=== PATIENT | female | born 1940 | race Caucasian/White ===

== ENCOUNTER 2024-01-26 19:14 | Inpatient (IN) | payer OTHER ==
[2024-01-26 19:50] LABS: VENOUS BASE EXCESS 1.6 mmol/L (-2-2); VENOUS O2 SATURATION 29.7 % (70-80); VENOUS PCO2 51.6 mmHg (38-52); VENOUS PH 7.353 (7.310-7.410)
[2024-01-26 19:53] LABS: BASO % 0.4 % (0-2.0); EOS % 0.3 % (0-4.5); HEMATOCRIT 39.8 % (32.4-45.2); LYMPH % 7.4 % (8-40); MCH 30.7 pg (25.7-33.7); MCHC 32.7 g/dl (32.0-36.0); MEAN CELL VOLUME 93.9 fl (80-96); MEAN PLT VOLUME 7.1 fl (7.5-11.1); MONO % 7.2 % (3.8-10.2); NEUT % 84.7 % (42.8-82.8); PLATELET COUNT 357 10^3/uL (134-434); RBC 4.24 M/mm3 (3.60-5.2); RDW 15.1 % (11.6-15.6); WHITE BLOOD COUNT 11.6 K/mm3 (4.0-10.0)
[2024-01-26 20:17] LABS: POTASSIUM 4.7 mmol/L (3.5-5.1)
[2024-01-26 20:19] LABS: ALBUMIN 3.8 g/dl (3.4-5.0); BLOOD UREA NITROGEN 30.2 mg/dL (7-18); CALCIUM 10.3 mg/dL (8.5-10.1)
[2024-01-26 20:22] LABS: CREATININE 1.1 mg/dL (0.55-1.3)
[2024-01-26 20:25] LABS: BILIRUBIN,TOTAL 0.4 mg/dL (0.2-1); TOT PROT 7.2 g/dl (6.4-8.2)
[2024-01-26 20:49] LABS: INR 0.95 (0.83-1.09); PROTHROMBIN TIME (PATIENT) 10.9 SEC (9.7-13.0)
[2024-01-26 20:51] LABS: ACTIVATED PTT 37.9 SECONDS (25.2-36.5)
[2024-01-26 21:23] LABS: ALBUMIN 3.8 g/dl (3.4-5.0); BLOOD UREA NITROGEN 30.4 mg/dL (7-18); CALCIUM 9.7 mg/dL (8.5-10.1)
[2024-01-26 21:27] LABS: BILIRUBIN,TOTAL 0.4 mg/dL (0.2-1); CREATININE 1.2 mg/dL (0.55-1.3)
[2024-01-26] MEDS: SODIUM CHLORIDE 0.9% 500 ML INFUS.BAG IV ONE (21:34)
[2024-01-26] MEDS ORDERED: DIVALPROEX SODIUM 125 MG TABLET E.C. ONE (23:47)
[2024-01-26] MEDS ORDERED: QUEtiapine FUMARATE 100 MG TABLET (FP) ONE (23:47)
[2024-01-26] MEDS ORDERED: LORazepam 1 MG TABLET ONE (23:47)
[2024-01-27] MEDS: QUEtiapine FUMARATE 200 MG TABLET PO ONE (00:06)
[2024-01-27] MEDS: LORazepam 1 MG TABLET PO ONE (00:06)
[2024-01-27] MEDS: DIVALPROEX SODIUM 125 MG TABLET E.C. PO ONE (00:06)
[2024-01-27 02:22] VITALS: BMI 18.8
[2024-01-27] MEDS: ENOXAPARIN NA (PORCINE) 40 MG/0.4 ML DISP.SYRIN SQ ONE (06:29)
[2024-01-27] MEDS: INSULIN ASPART SLIDING SCALE (NOVOLOG) 1 VIAL SQ SCH (06:37)
[2024-01-27] MEDS: LEVOTHYROXINE NA 50 MCG TABLET (FP) PO SCH (06:43)
[2024-01-27 08:34] LABS: HEMATOCRIT 35.1 % (32.4-45.2); HEMOGLOBIN 11.3 GM/dL (10.7-15.3); MCH 30.8 pg (25.7-33.7); MCHC 32.3 g/dl (32.0-36.0); MEAN CELL VOLUME 95.3 fl (80-96); MEAN PLT VOLUME 7.8 fl (7.5-11.1); PLATELET COUNT 315 10^3/uL (134-434); RBC 3.68 M/mm3 (3.60-5.2); RDW 14.7 % (11.6-15.6); WHITE BLOOD COUNT 10.1 K/mm3 (4.0-10.0)
[2024-01-27 08:42] LABS: EPI CELLS 14 /uL (0-25.1); HYALINE CASTS 1 /uL (0-3.1); URINE APPEARANCE CLEAR; URINE BACTERIA 27 /uL (0-1359); URINE BILIRUBIN NEGATIVE (NEGATIVE); URINE COLOR YELLOW; URINE GLUCOSE (UA) NEGATIVE (NEGATIVE); URINE KETONE 1+ (NEGATIVE); URINE LEUK ESTERASE 2+ (NEGATIVE); URINE NITRITE NEGATIVE (NEGATIVE); URINE PROTEIN NEGATIVE (NEGATIVE); URINE RBC 21 /uL (0-23.9); URINE WBC 197 /uL (0-25.8)
[2024-01-27 08:59] LABS: POTASSIUM 4.2 mmol/L (3.5-5.1)
[2024-01-27 09:12] LABS: ALBUMIN 3.2 g/dl (3.4-5.0); BLOOD UREA NITROGEN 27.8 mg/dL (7-18); MAGNESIUM 2.4 mg/dL (1.8-2.4)
[2024-01-27 09:15] LABS: PHOSPHOROUS 4.6 mg/dL (2.5-4.9)
[2024-01-27 09:18] LABS: BILIRUBIN,TOTAL 0.4 mg/dL (0.2-1)
[2024-01-27] MEDS: ASPIRIN 81 MG CHEWABLE TABLETS PO SCH (09:47)
[2024-01-27] MEDS: DONEPEZIL HCL 5 MG TABLET (FP) PO SCH (09:47)
[2024-01-27] MEDS: FOLIC ACID 1 MG TABLET (FP) PO SCH (09:47)
[2024-01-27] MEDS: ENOXAPARIN NA (PORCINE) 40 MG/0.4 ML DISP.SYRIN SQ SCH (09:53)
[2024-01-27] MEDS ORDERED: VANCOMYCIN 750 MG in DEXTROSE 5%-WATER - 150 ML IVPB SCH (10:00)
[2024-01-27] MEDS: VANCOMYCIN/WATER FOR INJ (PEG) 750 MG/150 ML BAG IVPB SCH (11:32)
[2024-01-27] MEDS ORDERED: LORazepam 2 MG/ML SDV VIAL IVPB PRN (14:25)
[2024-01-27] MEDS: DEXTROSE 5%-NORMAL SALINE 1,000 ML IV SCH (15:08)
[2024-01-27] MEDS: AZTREONAM 1 GM in DEXTROSE 5%-WATER - 50 ML IVPB SCH (15:14)
[2024-01-27] MEDS: LORazepam 2 MG/ML SDV VIAL IVPUSH PRN (15:18)
[2024-01-27] MEDS ORDERED: ALBUTEROL SO4 2.5/IPRATROPIUM 0.5 INH SOL 3 ML VIAL.NEB. NEB PRN (17:26)
[2024-01-27] MEDS: OLANZapine 5 MG TABLET PO SCH (22:17)
[2024-01-28] MEDS: LORazepam 2 MG/ML SDV VIAL IVPUSH PRN (08:05)
[2024-01-28 09:33] LABS: BASO % 0.6 % (0-2.0); EOS % 1.1 % (0-4.5); HEMATOCRIT 33.4 % (32.4-45.2); LYMPH % 5.7 % (8-40); MCH 31.6 pg (25.7-33.7); MEAN CELL VOLUME 95.9 fl (80-96); MEAN PLT VOLUME 7.6 fl (7.5-11.1); MONO % 7.4 % (3.8-10.2); NEUT % 85.2 % (42.8-82.8); PLATELET COUNT 303 10^3/uL (134-434); RBC 3.49 M/mm3 (3.60-5.2); RDW 14.2 % (11.6-15.6); WHITE BLOOD COUNT 8.7 K/mm3 (4.0-10.0)
[2024-01-28 10:02] LABS: POTASSIUM 3.8 mmol/L (3.5-5.1)
[2024-01-28 10:05] LABS: ALBUMIN 3.2 g/dl (3.4-5.0); BLOOD UREA NITROGEN 23.4 mg/dL (7-18); CALCIUM 8.7 mg/dL (8.5-10.1); MAGNESIUM 2.1 mg/dL (1.8-2.4)
[2024-01-28 10:10] LABS: BILIRUBIN,TOTAL 0.5 mg/dL (0.2-1)
[2024-01-29 09:18] LABS: BASO % 0.4 % (0-2.0); EOS % 1.7 % (0-4.5); HEMATOCRIT 31.7 % (32.4-45.2); HEMOGLOBIN 10.5 GM/dL (10.7-15.3); LYMPH % 10.5 % (8-40); MCH 31.6 pg (25.7-33.7); MCHC 33.2 g/dl (32.0-36.0); MEAN CELL VOLUME 95.1 fl (80-96); MEAN PLT VOLUME 7.7 fl (7.5-11.1); NEUT % 76.4 % (42.8-82.8); PLATELET COUNT 298 10^3/uL (134-434); RBC 3.33 M/mm3 (3.60-5.2); RDW 14.1 % (11.6-15.6); WHITE BLOOD COUNT 6.2 K/mm3 (4.0-10.0)
[2024-01-29 09:24] LABS: POTASSIUM 3.7 mmol/L (3.5-5.1)
[2024-01-29 09:32] LABS: BLOOD UREA NITROGEN 14.1 mg/dL (7-18); CALCIUM 8.5 mg/dL (8.5-10.1)
[2024-01-29 09:34] LABS: MAGNESIUM 2.1 mg/dL (1.8-2.4)
[2024-01-29 09:37] LABS: BILIRUBIN,TOTAL 0.3 mg/dL (0.2-1); CREATININE 0.8 mg/dL (0.55-1.3)
[2024-01-29 09:39] LABS: TOT PROT 5.7 g/dl (6.4-8.2)
[2024-01-29] MEDS: DIVALPROEX SODIUM 250 MG TABLET E.C. PO SCH (11:38)
[2024-01-29] MEDS: MEMANTINE HCL 5 MG TABLET (UD) PO SCH (11:38)
[2024-01-29] MEDS ORDERED: VALPROATE SODIUM INJECTION 250 MG in DEXTROSE 5%-WATER - 50 ML IVPB SCH (13:00)
[2024-01-29] MEDS ORDERED: VALPROATE SODIUM 250 MG/5 ML UNIT DOSE CUP PO SCH (13:00)
[2024-01-29] MEDS: VALPROATE SODIUM 500 MG/5 ML VIAL IVPB SCH (13:28)
[2024-01-29] MEDS ORDERED: WATER IVPB SCH (22:00)
[2024-01-29] MEDS ORDERED: VALPROATE SODIUM 500 MG/5 ML VIAL IVPB SCH (22:00)
[2024-01-29] MEDS ORDERED: DEXTROSE 5% IVPB SCH (22:00)
[2024-01-29] MEDS ORDERED: VALPROATE SODIUM IVPB SCH (22:00)
[2024-01-29] MEDS ORDERED: DIVALPROEX SODIUM 500 MG TABLET E.C. PO SCH (22:00)
[2024-01-29] MEDS: VALPROATE SODIUM 250 MG/5 ML UNIT DOSE CUP PO SCH (22:17)
[2024-01-30 09:22] LABS: BASO % 0.3 % (0-2.0); EOS % 2.4 % (0-4.5); HEMATOCRIT 33.1 % (32.4-45.2); HEMOGLOBIN 10.9 GM/dL (10.7-15.3); LYMPH % 8.4 % (8-40); MCH 31.5 pg (25.7-33.7); MEAN CELL VOLUME 95.3 fl (80-96); MEAN PLT VOLUME 7.3 fl (7.5-11.1); MONO % 9.5 % (3.8-10.2); NEUT % 79.4 % (42.8-82.8); PLATELET COUNT 340 10^3/uL (134-434); RBC 3.47 M/mm3 (3.60-5.2); RDW 13.8 % (11.6-15.6); WHITE BLOOD COUNT 6.9 K/mm3 (4.0-10.0)
[2024-01-30 09:45] LABS: POTASSIUM 3.8 mmol/L (3.5-5.1)
[2024-01-30 09:55] LABS: CALCIUM 8.6 mg/dL (8.5-10.1)
[2024-01-30 09:58] LABS: CREATININE 0.7 mg/dL (0.55-1.3)
[2024-01-30 09:59] LABS: BILIRUBIN,TOTAL 0.3 mg/dL (0.2-1); TOT PROT 5.9 g/dl (6.4-8.2)
[2024-01-30] MEDS ORDERED: VALPROATE SODIUM 250 MG/5 ML UNIT DOSE CUP PO SCH (10:00)
[2024-01-31 09:42] LABS: BASO % 0.2 % (0-2.0); EOS % 2.5 % (0-4.5); HEMATOCRIT 35.9 % (32.4-45.2); HEMOGLOBIN 12.2 GM/dL (10.7-15.3); LYMPH % 8.1 % (8-40); MCH 31.2 pg (25.7-33.7); MCHC 33.9 g/dl (32.0-36.0); MEAN PLT VOLUME 7.5 fl (7.5-11.1); MONO % 9.2 % (3.8-10.2); PLATELET COUNT 426 10^3/uL (134-434); RDW 13.6 % (11.6-15.6)
[2024-01-31] MEDS: VALPROATE SODIUM 250 MG/5 ML UNIT DOSE CUP PO ONE (09:51)
[2024-01-31 10:26] LABS: POTASSIUM 3.9 mmol/L (3.5-5.1)
[2024-01-31 10:30] LABS: CALCIUM 9.6 mg/dL (8.5-10.1)
[2024-01-31 10:31] LABS: ALBUMIN 3.1 g/dl (3.4-5.0); BLOOD UREA NITROGEN 12.7 mg/dL (7-18)
[2024-01-31 10:34] LABS: CREATININE 0.8 mg/dL (0.55-1.3)
[2024-01-31 10:36] LABS: BILIRUBIN,TOTAL 0.4 mg/dL (0.2-1); TOT PROT 6.3 g/dl (6.4-8.2)
[2024-02-01] MEDS: MULTIVITAMINS (DAILY MVI) TABLET (FP) PO SCH (11:05)
[2024-02-01] MEDS: VALPROATE SODIUM 250 MG/5 ML UNIT DOSE CUP PO SCH (11:05)
[2024-02-01 11:34] LABS: BASO % 0.9 % (0-2.0); EOS % 1.3 % (0-4.5); HEMATOCRIT 36.7 % (32.4-45.2); HEMOGLOBIN 12.2 GM/dL (10.7-15.3); LYMPH % 6.3 % (8-40); MCH 30.9 pg (25.7-33.7); MCHC 33.2 g/dl (32.0-36.0); MEAN CELL VOLUME 93.1 fl (80-96); MEAN PLT VOLUME 7.6 fl (7.5-11.1); NEUT % 82.5 % (42.8-82.8); PLATELET COUNT 477 10^3/uL (134-434); RBC 3.94 M/mm3 (3.60-5.2); RDW 13.9 % (11.6-15.6)
[2024-02-01 13:57] LABS: POTASSIUM 3.7 mmol/L (3.5-5.1)
[2024-02-01 14:00] LABS: BLOOD UREA NITROGEN 19.4 mg/dL (7-18)
[2024-02-01 14:03] LABS: CREATININE 0.9 mg/dL (0.55-1.3)
[2024-02-01 14:05] LABS: BILIRUBIN,TOTAL 0.4 mg/dL (0.2-1); TOT PROT 6.5 g/dl (6.4-8.2)
[2024-02-01 14:36] LABS: ALBUMIN 3.2 g/dl (3.4-5.0)
[2024-02-02 10:29] LABS: BASO % 0.6 % (0-2.0); HEMATOCRIT 34.4 % (32.4-45.2); HEMOGLOBIN 11.3 GM/dL (10.7-15.3); MCH 31.2 pg (25.7-33.7); MEAN CELL VOLUME 94.4 fl (80-96); MEAN PLT VOLUME 7.3 fl (7.5-11.1); MONO % 10.9 % (3.8-10.2); NEUT % 78.5 % (42.8-82.8); PLATELET COUNT 433 10^3/uL (134-434); RBC 3.64 M/mm3 (3.60-5.2); RDW 13.6 % (11.6-15.6); WHITE BLOOD COUNT 10.1 K/mm3 (4.0-10.0)
[2024-02-02 10:52] LABS: POTASSIUM 3.8 mmol/L (3.5-5.1)
[2024-02-02 11:00] LABS: CALCIUM 9.6 mg/dL (8.5-10.1)
[2024-02-02 11:01] LABS: BLOOD UREA NITROGEN 26.8 mg/dL (7-18)
[2024-02-02 11:04] LABS: CREATININE 0.9 mg/dL (0.55-1.3)
[2024-02-02 11:05] LABS: BILIRUBIN,TOTAL 0.3 mg/dL (0.2-1); TOT PROT 6.1 g/dl (6.4-8.2)
[2024-02-02 14:29] VITALS: RESP 18
[2024-02-02] MEDS: AMINO ACIDS/PROTEIN HYDROLYS 30 ML LIQUID.PKT PO SCH (17:46)
[2024-02-03 11:41] VITALS: PULSE 100
[2024-02-03 15:07] VITALS: BP 129/70; TEMP 98.4
== END 2024-02-03 21:17 | DRG 884 ==
LOC: JER 19:14 → JERBED 22:25 → J8W 01-27 01:24
PROVIDERS: ADMIT Internal Medicine; ATTEND Nurse Practitioner Acute Care
DX: F03.90 Unspecified dementia, unspecified severity, without behavioral disturbance, psychotic disturbance, mood disturbance, and anxiety (principal); E43 Unspecified severe protein-calorie malnutrition; G93.41 Metabolic encephalopathy; N39.0 Urinary tract infection, site not specified; Z68.1 Body mass index [BMI] 19.9 or less, adult; R64 Cachexia; R09.02 Hypoxemia; E03.9 Hypothyroidism, unspecified; K44.9 Diaphragmatic hernia without obstruction or gangrene; R41.0 Disorientation, unspecified; R26.81 Unsteadiness on feet; Z79.899 Other long term (current) drug therapy; Z96.611 Presence of right artificial shoulder joint; Z88.0 Allergy status to penicillin
CPT/HCPCS: 0241U-QW; 36415; 70450-TC; 71045-TC-FY; 72125-TC; 80053; 80164; 81003; 82803; 82962; 83036; 83605; 83735; 84100; 84439; 84443; 84484; 85025; 85027; 85610; 85730; 87040; 87086; 93005; 93010; 97116-GP; 99285-25

== ENCOUNTER 2024-02-04 13:23 | Inpatient (IN) | payer OTHER ==
[2024-02-04] MEDS ORDERED: ACETAMINOPHEN INJECTION 100 ML ONE (14:28)
[2024-02-04] MEDS: ACETAMINOPHEN 1000 MG/100 ML BAG IVPB ONE (14:33)
[2024-02-04] MEDS: SODIUM CHLORIDE 0.9% 500 ML INFUS.BAG IV ONE (14:33)
[2024-02-04 14:37] LABS: BASO % 0.4 % (0-2.0); EOS % 0.1 % (0-4.5); HEMATOCRIT 34.1 % (32.4-45.2); HEMOGLOBIN 11.2 GM/dL (10.7-15.3); LYMPH % 8.8 % (8-40); MCH 30.7 pg (25.7-33.7); MCHC 32.8 g/dl (32.0-36.0); MEAN CELL VOLUME 93.7 fl (80-96); MEAN PLT VOLUME 7.2 fl (7.5-11.1); MONO % 8.8 % (3.8-10.2); NEUT % 81.9 % (42.8-82.8); PLATELET COUNT 575 10^3/uL (134-434); RBC 3.64 M/mm3 (3.60-5.2); RDW 14.4 % (11.6-15.6); WHITE BLOOD COUNT 12.7 K/mm3 (4.0-10.0)
[2024-02-04 14:57] LABS: MAGNESIUM 2.8 mg/dL (1.8-2.4)
[2024-02-04 15:01] LABS: PHOSPHOROUS 3.4 mg/dL (2.5-4.9)
[2024-02-04 15:17] LABS: ALBUMIN 3.3 g/dl (3.4-5.0); CALCIUM 9.4 mg/dL (8.5-10.1)
[2024-02-04 15:18] LABS: BLOOD UREA NITROGEN 37.2 mg/dL (7-18)
[2024-02-04 15:22] LABS: BILIRUBIN,TOTAL 0.4 mg/dL (0.2-1); TOT PROT 6.6 g/dl (6.4-8.2)
[2024-02-04] MEDS: DEXTROSE 5%-WATER - 1,000 ML IV SCH (16:07)
[2024-02-04 16:46] LABS: EPI CELLS 11 /uL (0-25.1); HYALINE CASTS 0 /uL (0-3.1); PH,URINE 6.5 (5.0-8.0); URINE APPEARANCE CLEAR; URINE BACTERIA 5 /uL (0-1359); URINE BILIRUBIN NEGATIVE (NEGATIVE); URINE COLOR YELLOW; URINE GLUCOSE (UA) NEGATIVE (NEGATIVE); URINE KETONE 1+ (NEGATIVE); URINE LEUK ESTERASE NEGATIVE (NEGATIVE); URINE NITRITE NEGATIVE (NEGATIVE); URINE PROTEIN 2+ (NEGATIVE); URINE RBC 11 /uL (0-23.9); URINE UROBILINOGEN 0.2 mg/dL (0.2-1.0); URINE WBC 7 /uL (0-25.8)
[2024-02-04] MEDS ORDERED: CEFEPIME 2 GM/100 ML BAG IVPB ONE (19:26)
[2024-02-04] MEDS ORDERED: VANCOMYCIN/WATER 1250 MG 1,250 MG/250 ML BAG IVPB ONE (19:27)
[2024-02-04] MEDS: CEFEPIME HCL 2 GM VIAL (RESTRICTED TO ID) IVPB ONE (19:41)
[2024-02-04] MEDS: LORazepam 2 MG/ML SDV VIAL IVPUSH ONE (21:36)
[2024-02-04] MEDS: VANCOMYCIN/WATER 1250 MG 1,250 MG/250 ML BAG IVPB ONE (21:36)
[2024-02-04] MEDS ORDERED: LORazepam 2 MG/ML SDV VIAL ONE (21:37)
[2024-02-04] MEDS ORDERED: MEROPENEM 1 GM in DEXTROSE 5%-WATER 100 ML IVPB SCH (23:45)
[2024-02-04] MEDS ORDERED: MEROPENEM 1 GM VIAL (RESTRICTED TO ID) IVPB ONE (23:55)
[2024-02-05] MEDS: MEROPENEM 1 GM in DEXTROSE 5%-WATER 100 ML IVPB SCH
[2024-02-05] MEDS: VANCOMYCIN 750 MG in DEXTROSE 5%-WATER - 150 ML IVPB SCH (00:04)
[2024-02-05 00:58] VITALS: BMI 17.7
[2024-02-05] MEDS: MEROPENEM-0.9% SODIUM CHLORIDE 1 GM/50 ML BAG IVPB SCH (02:00)
[2024-02-05] MEDS: VALPROATE SODIUM 250 MG/5 ML UNIT DOSE CUP PO SCH ×2 (02:01→10:44)
[2024-02-05] MEDS: OLANZapine 5 MG TABLET PO SCH (02:02)
[2024-02-05] MEDS: DEXTROSE 5%-NORMAL SALINE 1,000 ML IV SCH (02:15)
[2024-02-05] MEDS: LORazepam 1 MG TABLET PO SCH (06:24)
[2024-02-05] MEDS: VANCOMYCIN/WATER FOR INJ (PEG) 750 MG/150 ML BAG IVPB SCH (06:24)
[2024-02-05] MEDS: LEVOTHYROXINE NA 50 MCG TABLET (FP) PO SCH (06:25)
[2024-02-05] MEDS ORDERED: ACETAMINOPHEN 325 MG TABLET (FP) PO PRN (08:47)
[2024-02-05] MEDS ORDERED: MEROPENEM 1 GM in DEXTROSE 5%-WATER 100 ML IVPB ONE (09:08)
[2024-02-05] MEDS ORDERED: CEFEPIME HCL 1 GM VIAL (RESTRICTED TO ID) IVPB SCH (09:15)
[2024-02-05] MEDS ORDERED: MEROPENEM-0.9% SODIUM CHLORIDE 1 GM/50 ML BAG IVPB SCH ×2 (10:00→22:00)
[2024-02-05] MEDS ORDERED: ENOXAPARIN NA (PORCINE) 40 MG/0.4 ML DISP.SYRIN SQ SCH (10:00)
[2024-02-05 10:13] LABS: HEMATOCRIT 30.7 % (32.4-45.2); HEMOGLOBIN 10.1 GM/dL (10.7-15.3); MCH 31.5 pg (25.7-33.7); MEAN CELL VOLUME 95.4 fl (80-96); MEAN PLT VOLUME 7.1 fl (7.5-11.1); PLATELET COUNT 432 10^3/uL (134-434); RBC 3.22 M/mm3 (3.60-5.2); RDW 14.1 % (11.6-15.6); WHITE BLOOD COUNT 14.4 K/mm3 (4.0-10.0)
[2024-02-05] MEDS: MEROPENEM-0.9% SODIUM CHLORIDE 1 GM/50 ML BAG IVPB ONE (10:44)
[2024-02-05] MEDS: HEPARIN NA (PORCINE) 5,000 UNITS/ML 1ML VIAL SQ SCH (10:44)
[2024-02-05] MEDS: MEMANTINE HCL 5 MG TABLET (UD) PO SCH (10:44)
[2024-02-05] MEDS: PANTOPRAZOLE 40 MG TABLET PO SCH (10:44)
[2024-02-05] MEDS: ASPIRIN 81 MG CHEWABLE TABLETS PO SCH (10:44)
[2024-02-05] MEDS: FOLIC ACID 1 MG TABLET (FP) PO SCH (10:45)
[2024-02-05 10:49] LABS: POTASSIUM 3.5 mmol/L (3.5-5.1)
[2024-02-05 10:52] LABS: CALCIUM 8.3 mg/dL (8.5-10.1)
[2024-02-05 10:55] LABS: ALBUMIN 2.8 g/dl (3.4-5.0); BLOOD UREA NITROGEN 24.9 mg/dL (7-18); MAGNESIUM 2.3 mg/dL (1.8-2.4)
[2024-02-05 10:59] LABS: CREATININE 0.8 mg/dL (0.55-1.3); PHOSPHOROUS 2.5 mg/dL (2.5-4.9)
[2024-02-05 11:00] LABS: BILIRUBIN,TOTAL 0.5 mg/dL (0.2-1)
[2024-02-05 11:07] LABS: TOT PROT 5.5 g/dl (6.4-8.2)
[2024-02-05] MEDS: busPIRone HCL 5 MG TABLET PO SCH (21:56)
[2024-02-05] MEDS: MIRTAZAPINE 15 MG TABLET (FP) PO SCH (21:57)
[2024-02-05] MEDS: DONEPEZIL HCL 5 MG TABLET (FP) PO SCH (21:57)
[2024-02-05] MEDS: DIVALPROEX SODIUM 125 MG TABLET E.C. PO SCH (22:16)
[2024-02-06] MEDS: MULTIVITAMINS (DAILY MVI) TABLET (FP) PO SCH (10:52)
[2024-02-06] MEDS: THIAMINE 100 MG TABLET PO SCH (10:52)
[2024-02-06 12:33] LABS: HEMOGLOBIN 11.1 GM/dL (10.7-15.3); MCH 31.7 pg (25.7-33.7); MCHC 33.6 g/dl (32.0-36.0); MEAN CELL VOLUME 94.4 fl (80-96); MEAN PLT VOLUME 7.6 fl (7.5-11.1); PLATELET COUNT 516 10^3/uL (134-434); RBC 3.49 M/mm3 (3.60-5.2); WHITE BLOOD COUNT 9.8 K/mm3 (4.0-10.0)
[2024-02-06 13:03] LABS: POTASSIUM 3.7 mmol/L (3.5-5.1)
[2024-02-06 13:06] LABS: CALCIUM 8.6 mg/dL (8.5-10.1)
[2024-02-06 13:07] LABS: ALBUMIN 2.8 g/dl (3.4-5.0); BLOOD UREA NITROGEN 20.9 mg/dL (7-18)
[2024-02-06 13:10] LABS: CREATININE 0.9 mg/dL (0.55-1.3)
[2024-02-06 13:12] LABS: BILIRUBIN,TOTAL 0.3 mg/dL (0.2-1); TOT PROT 5.6 g/dl (6.4-8.2)
[2024-02-07 12:00] LABS: BASO % 0.5 % (0-2.0); HEMATOCRIT 34.5 % (32.4-45.2); HEMOGLOBIN 11.7 GM/dL (10.7-15.3); LYMPH % 8.7 % (8-40); MCH 31.8 pg (25.7-33.7); MCHC 33.9 g/dl (32.0-36.0); MEAN CELL VOLUME 93.7 fl (80-96); MEAN PLT VOLUME 7.7 fl (7.5-11.1); MONO % 5.4 % (3.8-10.2); NEUT % 83.4 % (42.8-82.8); PLATELET COUNT 622 10^3/uL (134-434); RBC 3.68 M/mm3 (3.60-5.2); RDW 14.2 % (11.6-15.6); WHITE BLOOD COUNT 13.7 K/mm3 (4.0-10.0)
[2024-02-07 12:18] LABS: POTASSIUM 4.1 mmol/L (3.5-5.1)
[2024-02-07 12:19] LABS: BLOOD UREA NITROGEN 19.9 mg/dL (7-18)
[2024-02-07 12:24] LABS: CREATININE 0.8 mg/dL (0.55-1.3)
[2024-02-07] MEDS: D5-1/2NS+10 MEQ KCL - 10 MEQ/1,000 ML INFUS.BAG IV SCH (13:40)
[2024-02-08 10:30] LABS: BASO % 0.9 % (0-2.0); EOS % 2.6 % (0-4.5); HEMATOCRIT 31.8 % (32.4-45.2); HEMOGLOBIN 10.9 GM/dL (10.7-15.3); LYMPH % 9.9 % (8-40); MCH 31.7 pg (25.7-33.7); MCHC 34.2 g/dl (32.0-36.0); MEAN CELL VOLUME 92.7 fl (80-96); MEAN PLT VOLUME 7.6 fl (7.5-11.1); MONO % 5.1 % (3.8-10.2); NEUT % 81.5 % (42.8-82.8); PLATELET COUNT 597 10^3/uL (134-434); RBC 3.43 M/mm3 (3.60-5.2); RDW 13.7 % (11.6-15.6); WHITE BLOOD COUNT 11.4 K/mm3 (4.0-10.0)
[2024-02-08] MEDS ORDERED: MAG HYDROX/AL HYDROX/SIMETH -MYLANTA- ORAL SUSPENSION PO PRN (10:41)
[2024-02-08 10:45] LABS: POTASSIUM 4.1 mmol/L (3.5-5.1)
[2024-02-08 10:47] LABS: BLOOD UREA NITROGEN 14.4 mg/dL (7-18); CALCIUM 8.7 mg/dL (8.5-10.1)
[2024-02-08 10:51] LABS: CREATININE 0.7 mg/dL (0.55-1.3)
[2024-02-08] MEDS ORDERED: MAG HYDROX/AL HYDROX/SIMETH 30 ML UNIT-DOSE CUP PO PRN (23:33)
[2024-02-09 08:52] VITALS: BP 103/52; PULSE 72; RESP 18; TEMP 97.4
[2024-02-09 10:06] LABS: HEMATOCRIT 32.7 % (32.4-45.2); HEMOGLOBIN 10.7 GM/dL (10.7-15.3); MCH 30.9 pg (25.7-33.7); MCHC 32.7 g/dl (32.0-36.0); MEAN CELL VOLUME 94.6 fl (80-96); MEAN PLT VOLUME 7.3 fl (7.5-11.1); PLATELET COUNT 602 10^3/uL (134-434); RBC 3.46 M/mm3 (3.60-5.2); RDW 14.5 % (11.6-15.6); WHITE BLOOD COUNT 13.9 K/mm3 (4.0-10.0)
[2024-02-09 10:29] LABS: ALBUMIN 2.8 g/dl (3.4-5.0); BLOOD UREA NITROGEN 11.8 mg/dL (7-18); CALCIUM 9.5 mg/dL (8.5-10.1)
[2024-02-09 10:30] LABS: MAGNESIUM 2.5 mg/dL (1.8-2.4)
[2024-02-09 10:32] LABS: BILIRUBIN,TOTAL 0.2 mg/dL (0.2-1); PHOSPHOROUS 3.9 mg/dL (2.5-4.9); TOT PROT 5.6 g/dl (6.4-8.2)
[2024-02-09 10:36] LABS: CREATININE 0.8 mg/dL (0.55-1.3)
[2024-02-09 11:06] LABS: ANISOCYTOSIS 0; HELMET CELLS 0; HOWELL-JOLLY BODIES 0; MACROCYTOSIS 0; OVALOCYTE 0; ROULEAU 0; SICKELED CELLS 0; TARGET CELLS 0; TEAR DROP CELLS 0; TOXIC GRANULATION 0
== END 2024-02-09 14:14 | disposition hospice, inpatient (51) | DRG 871 ==
LOC: JER 13:23 → JERBED 20:41 → OBSVTOIN 23:26 → J6S 02-05 00:46
PROVIDERS: ADMIT Internal Medicine; ATTEND Internal Medicine
DX: A41.9 Sepsis, unspecified organism (principal); E43 Unspecified severe protein-calorie malnutrition; E87.0 Hyperosmolality and hypernatremia; Z68.1 Body mass index [BMI] 19.9 or less, adult; F03.90 Unspecified dementia, unspecified severity, without behavioral disturbance, psychotic disturbance, mood disturbance, and anxiety; R13.10 Dysphagia, unspecified; R62.7 Adult failure to thrive; E03.9 Hypothyroidism, unspecified; F39 Unspecified mood [affective] disorder; K21.9 Gastro-esophageal reflux disease without esophagitis
CPT/HCPCS: 0241U-QW; 36415; 71045-TC-FY; 80048; 80053; 81003; 82962; 83605; 83735; 84100; 84295; 85025; 85027; 87040; 87086; 93005; 93010; 97116-GP; 97161-GP; 99285-25; G0378; J0131; J1644